=== PATIENT | female | born 1990 | race Two or more races ===

== ENCOUNTER 2017-11-07 17:00 | Observation (INO) | payer MEDICAID ==
[~2017-11-07 17:00] MED LIST: PRENCAP61 PO
== END 2017-11-07 17:55 | disposition home or self-care (01) | DRG 955 ==
LOC: LDRP 17:00
PROVIDERS: ADMIT Specialist; ATTEND Specialist
DX: O26.899 Other specified pregnancy related conditions, unspecified trimester (principal); R10.2 Pelvic and perineal pain; Z3A.00 Weeks of gestation of pregnancy not specified
CPT/HCPCS: 59025; 81002; G0378